=== PATIENT | female | born 1960 | race Caucasian/White ===

== ENCOUNTER 2019-07-18 06:01 | Outpatient (CLI) | payer OTHER ==
[2019-07-19 11:42] LABS: SARS-CoV-2 MS2 Positive; SARS-CoV-2 N Gene Negative; SARS-CoV-2 S Gene Negative; SARS-CoV-2 orf1ab Negative
== END 2019-07-18 06:02 | disposition home or self-care (01) ==
LOC: LABBT 06:01
PROVIDERS: ATTEND Neurological Surgery
DX: Z01.812 Encounter for preprocedural laboratory examination (principal); Z11.59 Encounter for screening for other viral diseases; M50.122 Cervical disc disorder at C5-C6 level with radiculopathy
CPT/HCPCS: 87635; U0003

== ENCOUNTER 2019-07-23 10:59 | Day surgery (SDC) | payer OTHER ==
[2019-07-18 15:13] VITALS: BMI 28.3
[2019-07-23] MEDS ORDERED: Ondansetron PF 4 MG/2 ML Vial ONE (11:17)
[2019-07-23] MEDS ORDERED: Rocuronium Bromide 10 MG/ML (10ML VIAL) ONE (11:17)
[2019-07-23] MEDS ORDERED: PROPOFOL 200 MG/20 ML VIAL ONE (11:17)
[2019-07-23] MEDS ORDERED: Lidocaine 1% PF 5 ML VIAL ONE (11:17)
[2019-07-23] MEDS ORDERED: PHENYLEPHRINE-NS 100 MCG/ML 10 ML SYRINGE ONE (11:17)
[2019-07-23] MEDS ORDERED: Glycopyrrolate 0.2 MG/ML 5 ML SYRINGE ONE (11:17)
[2019-07-23] MEDS ORDERED: Dexamethasone 20 MG/5 ML VIAL ONE (11:17)
[2019-07-23] MEDS ORDERED: Metoclopramide HCl 10 MG/2 ML VIAL ONE (11:17)
[2019-07-23] MEDS ORDERED: Thrombin 5000 UNITS/5 ML VIAL ONE (11:34)
[2019-07-23] MEDS ORDERED: Fentanyl 100 MCG/2 ML VIAL ONE ×4 (12:31→16:21)
[2019-07-23 12:53] LABS: Hemoglobin 13.5 g/dL (12.0-16.0); Mean Corpuscular HGB CONC 33.8 g/dL (32.0-36.0); Mean Corpuscular Hemoglobin 32.5 pg (27.0-31.0); Mean Platelet Volume 6.9 fL (7.4-10.4); Platelet Count 312 thou/uL (130-400); RBC Distribution Width 11.5 % (11.5-14.5); Red Blood Cell (RBC) Count 4.17 mill/uL (4.20-5.40); White Blood Cell (WBC) Count 6.7 thou/uL (4.8-10.8)
[2019-07-23 13:00] LABS: INR-International Normal Ratio 0.9; PTT 28.2 SEC (22.9-36.1); Prothrombin Time 12.6 sec (12.0-14.7)
[2019-07-23] MEDS ORDERED: diphenhydrAMINE 25 MG CAP PO PRN (15:41)
[2019-07-23] MEDS ORDERED: Milk Of Magnesia 30 ML UDCUP PO PRN (15:41)
[2019-07-23] MEDS ORDERED: Prochlorperazine 10 MG/2 ML VIAL IM PRN (15:41)
[2019-07-23] MEDS ORDERED: Mag-Al 1200 mg/1200 mg/30 ML UDCUP PO PRN (15:41)
[2019-07-23] MEDS ORDERED: tiZANidine HCl 4 MG TAB PO PRN (15:41)
[2019-07-23] MEDS ORDERED: Promethazine 25 MG TAB PO PRN (15:41)
[2019-07-23] MEDS ORDERED: Acetaminophen 325 MG TAB PO PRN (15:41)
[2019-07-23] MEDS ORDERED: Ondansetron PF 4 MG/2 ML Vial IVP PRN (15:41)
[2019-07-23] MEDS ORDERED: Sodium Chloride 0.9% 1,000 ML IV SCH (15:45)
[2019-07-23] MEDS ORDERED: Fioricet 325/50/40 mg Tablet PO PRN (15:58)
[2019-07-23] MEDS ORDERED: Magnesium Oxide 250 MG TAB PO PRN (16:00)
[2019-07-23] MEDS ORDERED: Scopolamine 1.5 mg/72 hour Patch TD SCH (16:00)
[2019-07-23] MEDS ORDERED: Fentanyl 100 MCG/2 ML VIAL SLOW IVP PRN ×2 (16:00→16:01)
[2019-07-23] MEDS ORDERED: Acetaminophen/Codeine 30-300mg Tablet PO PRN (17:00)
[2019-07-23] MEDS ORDERED: Proparacaine 0.5% Opth 15 ML BOT ONE (18:33)
[2019-07-23] MEDS ORDERED: Fluorescein Opthalmic Strip ONE (18:33)
[2019-07-23] MEDS ORDERED: Promethazine HCl 25 MG/ML VIAL ONE (19:01)
--- NOTE | 2019-07-23 19:07 | OP ---
DATE OF PROCEDURE: 07/23/2019 CIRCUIT BOARD INSPECTOR: Russell Bro PA-C. PREOPERATIVE INDICATION: Treat pain, prevent neurological deterioration. PREOPERATIVE DIAGNOSIS: status post posterior C5-6 and C6-7 surgery, recurrent pain. POSTOPERATIVE DIAGNOSIS: status post posterior C5-6 and C6-7 surgery, recurrent pain. OPERATIVE PROCEDURE: Anterior cervical diskectomy, intervertebral arthrodesis, placement of intervertebral biomechanical device and anterior cervical plating, C5-6 and C6-7. local morselized autograft, morselized allograft, operative microscope. PREOPERATIVE MEDICATION: Ancef 2 g IV. DRAIN NUMBER: Zero. DRAIN TYPE: None. DESCRIPTION OF PROCEDURE: The patient was brought to the operating room, where general endotracheal anesthesia was induced. The patient was positioned supine on the operating table with her head supported by a donut-shaped headrest. A lateral fluoro radiograph was used to plan our incision. The right side of the neck was sterilely prepped and draped. We opened our incision with a 10 blade knife and controlled bleeding with bipolar cautery. We dissected sharply to the platysma and cut this muscle in line with our incision. We continued our dissection medial to the sternocleidomastoid and lateral to the trachea and esophagus. We arrived to the prevertebral space. I then placed a marker at C5-6. We took a lateral fluoro radiograph to confirm the levels upon which we were operating. We then elevated the longus colli muscles off the anterior surface of C5, C6, and C7, and placed a self-retaining retractor beneath them. Distraction pins were placed in the vertebral bodies of C5 and C7. We distracted across the intervening interspaces with the Royal distractor. We incised the interspace with a 15 blade knife and we removed disk contents using curettes and rongeurs. The operative microscope was brought into the field. Under microscopic magnification using microsurgical techniques, we removed the remainder of the intervertebral discs. Using the micro curette, we accessed the ventral epidural space and using Kerrison rongeurs, we removed posterior osteophytes and posterior longitudinal ligament from one neuroforamen all the way to the other C5-6 and again at C6-7. With our decompression secured, we turned our attention to arthrodesis. Using curette to prepare the endplates for grafting. We measured the height of the interspace 6 mm at C5-6. and 7 mm at C6-7. The appropriately sized PEEK intervertebral grafts were brought into the field. The bone removed during our osteophyte removal was carefully cleaned of soft tissue attachments, morselized, and added to demineralized bone matrix to form our fusion substrate. The substrate was packed into the center of the graft and those grafts were advanced in the interspaces under radiographic guidance to the appropriate depth. We removed our distraction pins and the operative microscope. A 28 mm anterior cervical plate was brought into the field. We drilled airplane pilot holes through the plate into the vertebral bodies of C5, C6, and C7. We affixed the plate using 14 mm screws. Fixed angle screws were used at C7 and variable angle screws at C5 and C6. We engaged the locking mechanism over each of the six screws. AP and lateral fluoro radiographs confirmed adequate positioning of the instrumentation. We irrigated copiously with bacitracin irrigation. When hemostasis was excellent, we closed in anatomical layers and we applied a sterile dressing. This was a clean case, no contamination. Job ID: [id number]
[2019-07-23] MEDS ORDERED: HYDROcodone/Acetaminophen 5/325 mg Tablet ONE (20:09)
[2019-07-23] MEDS ORDERED: CEFAZOLIN 2 GM in Premix Bag 1 BAG IVPB SCH (21:00)
[2019-07-24] MEDS ORDERED: Tamsulosin HCl 0.4 MG CAP PO SCH (06:00)
[2019-07-24] MEDS ORDERED: Estrogens, Conjugated 0.3 MG TAB PO SCH (09:00)
[2019-07-24] MEDS ORDERED: Polyethylene Glycol 3350 17 GM Packet PO SCH (09:00)
== END 2019-07-23 21:06 | disposition home or self-care (01) ==
LOC: SDC 10:59
PROVIDERS: ATTEND Neurological Surgery
PROC: 0RG20A0 Fusion of 2 or more Cervical Vertebral Joints with Interbody Fusion Device, Anterior Approach, Anterior Column, Open Approach (ICD-10-PCS; principal; 2019-07-23)
PROC: 0RT30ZZ Resection of Cervical Vertebral Disc, Open Approach (ICD-10-PCS; principal; 2019-07-23)
PROC: 0RG2070 Fusion of 2 or more Cervical Vertebral Joints with Autologous Tissue Substitute, Anterior Approach, Anterior Column, Open Approach (ICD-10-PCS; principal; 2019-07-23)
PROC: 0RG20J1 Fusion of 2 or more Cervical Vertebral Joints with Synthetic Substitute, Posterior Approach, Posterior Column, Open Approach (ICD-10-PCS; principal; 2019-07-23)
DX: M50.122 Cervical disc disorder at C5-C6 level with radiculopathy (principal); M25.511 Pain in right shoulder; G89.29 Other chronic pain; N95.1 Menopausal and female climacteric states; Z79.899 Other long term (current) drug therapy; Z88.5 Allergy status to narcotic agent; Z91.040 Latex allergy status; Z91.041 Radiographic dye allergy status; Z91.048 Other nonmedicinal substance allergy status
CPT/HCPCS: 36415; 76000; 85027; 85610; 85730; C1713; C1776; J0690; J1100; J2001; J2405; J2550; J2704; J2765; J3010; L0174

== ENCOUNTER 2019-08-22 09:52 | Outpatient (CLI) | payer OTHER ==
--- NOTE | 2019-08-22 13:09 | RAD ---
CERVICAL SPINE SERIES 2 VIEWS: HISTORY: Followup surgery. COMPARISON: 05/31/2019 exam. FINDINGS: Since that prior study, the patient has undergone anterior cervical fusion with placement of plate an d screws extending from C5 to C7. Disk implants at the C5-6 and C6-7 levels are within the confines of the disk level. IMPRESSION: Postoperative changes of the lower cervical spine. POS: IVIS
== END 2019-08-22 09:53 | disposition home or self-care (01) ==
LOC: RAD 09:52
PROVIDERS: ATTEND Neurological Surgery
DX: M50.20 Other cervical disc displacement, unspecified cervical region (principal); Z98.1 Arthrodesis status
CPT/HCPCS: 72040